=== PATIENT | female | born 1985 | race Caucasian/White ===

== ENCOUNTER 2017-02-18 00:17 | Day surgery (SDC) | payer BC ==
--- NOTE | 2017-02-18 01:13 | ED ---
Abdominal Pain/Female - HPI Summary HPI Summary: Pt here w/ pelvic pain since Feb 08 s/p ectopic diagnosis on Jan 26 and 2 rounds of methotrexate tx, first on Jan 27, 2nd Feb 03. Had a 2 day "period" on Feb 08 w/ pain. No bleeding since but had vaginal spotting today. She's had pain on/off since - sharp at times and now just pressure - worse tonight at 23:00 - 5/10 - does not want pain medication. Associated sx of shaking for about an hour after pain hits. Denies fever, chills , increased heart rate, SOB, chest pain. Her reports she had noticeable pain after bowel movements which triggers nausea for pt. She is moving her bowels well otherwise and denies rectal bleeding. Has some mild lower back pain which she attributes to lying in bed too much. Her first was successful and w/o complications - FT, vaginal delivery. She has had difficulty conceiving a 2nd child so has been using metformin, then estrogen, etc. Stopped taking medications once they realized she had an ectopic . Has not had intercourse since as well. NOTE: LEEP in college - cleared since w/o residual issues. NOTE: pt's blood type is O- and is AB- - no rhogam - History of Current Complaint Chief Complaint: EDAbdPain Stated Complaint: PAIN Time Seen by Provider: 02/18/17 00:42 Hx Obtained From: Patient, Family/Revenue Coordinator - Hx Last Menstrual Period: 03/29/15 Pain Intensity: 3 Allergies/Adverse Reactions: Allergies Allergy/AdvReac Type Severity Reaction Status Date / Time Amoxicillin Allergy Unknown Verified 10/14/12 11:42 Reaction Details Penicillins Allergy Unknown Verified 10/14/12 11:42 Reaction Details seasonal allergy Allergy Eyes Uncoded 10/14/12 11:42 Itchy/Swollen/Red/Watery Home Medications: Home Medications NK [No Home Medications Reported] 02/18/17 [History Confirmed 02/18/17] PMH/Surg Hx/FS Hx/Imm Hx Previously Healthy: Yes Endocrine/Hematology History: Denies: Hx Thyroid Disease, Hx Anemia, Hx Unexplained Bleeding, Autoimmune Disease Respiratory History: Reports: Hx Asthma GI History: Denies: Hx Crohn's Disease, Hx Diverticulosis, Hx Gall Bladder Disease, Hx Gastroesophageal Reflux Disease, Hx Gastrointestinal Bleed, Hx Hiatal Hernia, Hx Irritable Bowel, Hx Obstructive Bowel, Hx Ulcer History: Denies: Hx Kidney Infection, Hx Kidney Stones - Surgical History Surgery Procedure, Year, and Place: LEE Infectious Disease History: No Infectious Disease History: Denies: Traveled Outside the [place] in Last 30 Days - Family History Known Family History: Positive: None - Social History Occupation: Employed Full-time - teacher Lives: With Family Alcohol Use: None Hx Substance Use: No Substance Use Type: Reports: None Hx Tobacco Use: No Smoking Status (MU): Never Smoked Tobacco Review of Systems Constitutional: Negative, Other - "shaking" after wave of pain Negative: Fever, Chills Eyes: Negative Negative: Drainage, Erythema ENT: Negative Negative: Sore Throat, Ear Ache, Nasal Discharge Cardiovascular: Negative Negative: Chest Pain Respiratory: Negative Negative: Shortness Of Breath, Cough Positive: Abdominal Pain, Nausea. Negative: Vomiting, Diarrhea Positive: see HPI. Negative: burning, dysuria, discharge, frequency, flank pain , incontinence, pain, urgency Musculoskeletal: Other - low back sore Skin: Negative Neurological: Negative Psychological: Normal All Other Systems Reviewed And Are Negative: Yes Physical Exam Triage Information Reviewed: Yes Vital Signs On Initial Exam: Initial Vitals Temp Pulse Resp BP Pulse Ox 98 F 103 18 139/74 98 02/18/17 00:20 02/18/17 00:20 02/18/17 00:20 02/18/17 00:20 02/18/17 00:20 Vital Signs Reviewed: Yes Appearance: Positive: Well-Appearing - overall color is good, appears well perfused, pleasant, good historian - is present w/ her and verifies timeline, Well-Nourished, Pain Distress - pt appears to be comfortable lying on Rt side but uncomfortable whens he rolls onto her back for ab exam - legs shaking (from pain?), Thin Skin: Positive: Warm, Skin Color Reflects Adequate Perfusion, Dry Head/Face: Positive: Normal Head/Face Inspection Eyes: Positive: Normal, EOMI, Conjunctiva Clear - anicteric sclera ENT: Positive: Normal ENT inspection, Hearing grossly normal, Pharynx normal - mucosa moist Neck: Positive: Supple, Nontender Respiratory/Lung Sounds: Positive: Clear to Auscultation, Breath Sounds Present. Negative: Rales, Rhonchi, Wheezes Cardiovascular: Positive: Normal, RRR, Pulses are Symmetrical in both Upper and Lower Extremities, S1, S2. Negative: Murmur, Rub Abdomen Description: Positive: Soft, Distended - mild - tympany w/ percussion, Other: - general TTP over lower abdomen however has most pain in Lt lower quadrant, closer to midline - no rebounding Bowel Sounds: Positive: Present Pelvic Exam: Positive: external exam normal, speculum exam normal - dark red blood in vaginal canal - os w/ mucous and blood d/c, tender w/ cervical motion, tender adnexa - Lt, not Rt Musculoskeletal: Positive: Normal, Strength/ROM Intact Neurological: Positive: Normal, Sensory/Motor Intact, Alert, Oriented to Person Place, Time, CN Intact II-III Psychiatric: Positive: Normal Diagnostics - Vital Signs Vital Signs Temp Pulse Resp BP Pulse Ox 02/18/17 00:20 98 F 103 18 139/74 98 - Laboratory Result Diagrams: 02/18/17 08:44 02/18/17 01:53 Lab Statement: Any lab studies that have been ordered have been reviewed, and results considered in the medical decision making process. Abdominal Pain Fem Course/Dx - Course Course Of Treatment: Pt presents s/p ectopic with 2 rounds of methotrexate (see HPI for details). She has generalized pelvic pain w/ most pain in LLQ and vaginal spotting w/ increased pain tonight at 23:00. Pelvic exam + for Lt adnexal tenderness and + CMT. Discussed case with Dr. Brenner as [facility] U/S tech reports possible B/L ectopic with hemorrhage in pelvis. Blood products were anticipated at this time, however pt's H&H are stable as well as vitals. Her WBC's and other inflammatory markers are WNL and she does not appear to have a fever at initial intake. Her temp moved to 100F after a [address] Brenner feels liklihood of ectopic rupture at this point w/ HCG 's trending down is not possible but will review final TVUS report upon completion. Also notes B/L ectopic is extremely rare. She is pleased with hcg downward trend since 2nd round of methotrexate. Requesting call back when pt's U/S is read by radiologist and as more labs return. UPDATE: TVUS report called in by Dr. Sb Woodruff and sent via fax (see report for details) . Concern for abnormal finding in B/L fallopian tubes - it was suggested she could have possibly had B/L ecoptic pregnancies as she was on fertility treatment prior to . Diff dx was also corpus luteum w/ debris on Rt. He is reporting a moderate amount of pelvic/ab fluid consistent w/ hemorrhage in lower pelvis and reaching up to liver, kidneys and base of spleen. Discussed again with Dr. Brenner who agrees to come in to evaluate the pt. Pt vitals and sx were monitored throughout her course of care here in ED and w/o acute change in BP, heart rate or temp to signify acute changes in her condition. Dr. García was also part of pt's care all along and agreed with plan. Pt and were also kept in the loop of findings and plan of care throughout the evening. Pt is stable at time of transition of care to Dr. Brenner. critical care time: 2 hours - Diagnoses Provider Diagnoses: Hemorrhage, peritoneal, , ectopic Discharge - Discharge Plan Condition: Stable Disposition: ADMITTED TO [facility]
[2017-02-18] MEDS ORDERED: NS 0.9% 1000 ML* 1,000 ML IV ONE (01:25)
[2017-02-18 02:14] LABS: ABS Basophils 0 10^3/ul (0-0.2); ABS Eosinophils 0 10^3/ul (0-0.6); ABS Lymphocytes 1.5 10^3/ul (1.0-4.8); ABS Monocytes 0.6 10^3/ul (0-0.8); ABS Nucleated RBC 0 10^3/ul; Eosinophil % 0.4 % (0-6); Hematocrit 33 % (35-47); Hemoglobin 11.5 g/dl (12.0-16.0); Lymphocyte % 18.2 % (25-47); Mean Corpuscular HGB Conc 35 g/dl (31-36); Mean Corpuscular Hemoglobin 31 pg (27-31); Mean Corpuscular Volume 87 fL (80-97); Mean Platelet Volume 8 um3 (7.4-10.4); Nucleated Red Blood Cells % 0; Platelet Count 197 10^3/ul (150-450); Red Blood Count 3.79 10^6/ul (4.0-5.4); Red Cell Distribution Width 13 % (10.5-15); White Blood Count 8.1 10^3/ul (3.5-10.8)
[2017-02-18 02:23] LABS: EGFR Non-African American 115.1 (>60)
[2017-02-18 02:26] LABS: INR 0.99 (0.77-1.02)
[2017-02-18] MEDS ORDERED: Morphine INJ* 2 MG/ML 1 ML CARPUJECT IV ONE (03:01)
[2017-02-18] MEDS ORDERED: Ondansetron INJ* 2 MG/ML VIAL IV ONE (03:01)
[2017-02-18] MEDS ORDERED: Morphine INJ* 2 MG/ML 1 ML SYRINGE (TWO MG - NEW SYRINGE VERSION) ONE (03:06)
[2017-02-18 04:13] LABS: ABS Basophils 0.1 10^3/ul (0-0.2); ABS Eosinophils 0 10^3/ul (0-0.6); ABS Lymphocytes 1.3 10^3/ul (1.0-4.8); ABS Monocytes 0.4 10^3/ul (0-0.8); ABS Neutrophils 7.6 10^3/ul (1.5-7.7); ABS Nucleated RBC 0 10^3/ul; Eosinophil % 0.1 % (0-6); Hematocrit 31 % (35-47); Hemoglobin 10.6 g/dl (12.0-16.0); Lymphocyte % 13.4 % (25-47); Mean Corpuscular HGB Conc 34 g/dl (31-36); Mean Corpuscular Hemoglobin 30 pg (27-31); Mean Corpuscular Volume 88 fL (80-97); Mean Platelet Volume 8 um3 (7.4-10.4); Nucleated Red Blood Cells % 0; Platelet Count 188 10^3/ul (150-450); Red Blood Count 3.52 10^6/ul (4.0-5.4); Red Cell Distribution Width 13 % (10.5-15); White Blood Count 9.3 10^3/ul (3.5-10.8)
[2017-02-18] MEDS ORDERED: Lidocaine 2% PF * 5 ML VIAL ONE (05:31)
[2017-02-18] MEDS ORDERED: fentaNYL* 50 MCG/ML 2 ML VIAL (100 MCG VIAL) ONE (05:31)
[2017-02-18] MEDS ORDERED: Propofol* 10 MG/ML 20 ML BTL IV PUSH ONE (05:31)
[2017-02-18] MEDS ORDERED: Succinylcholine* 20 MG/ML 10 ML VIAL ONE (05:31)
[2017-02-18] MEDS ORDERED: Bupivacaine 0.25% SDV* 30 ML ONE (05:39)
[2017-02-18] MEDS ORDERED: Sodium Citrate/Citric Acid* 15 ML UDC PO ONE (05:48)
[2017-02-18] MEDS ORDERED: Naloxone* 0.4 MG/ML 1 ML VIAL IV PRN (05:52)
[2017-02-18] MEDS ORDERED: DiMENhydriNATE IV* 50 MG/ML VIAL IV PUSH PRN (05:52)
[2017-02-18] MEDS ORDERED: HYDROcodone/ACETAMIN 5-325 MG* 1 TAB PO PRN (05:52)
[2017-02-18] MEDS ORDERED: oxyCODONE/Acetamin 5/325 MG* TAB PO PRN (05:52)
[2017-02-18] MEDS ORDERED: PROCHLORPERAZINE INJ 5 MG/ML 2 ML VIAL IV PRN (05:52)
[2017-02-18] MEDS ORDERED: fentaNYL* 50 MCG/ML 2 ML VIAL (100 MCG VIAL) IV PRN (05:52)
[2017-02-18] MEDS ORDERED: Sodium Citrate/Citric Acid* 15 ML UDC ONE (05:54)
[2017-02-18] MEDS ORDERED: EPHEDrine (Pressors)* 50 MG/ML VIAL ONE (06:22)
--- NOTE | 2017-02-18 07:32 | RAD ---
INDICATION: Pelvic pain with known left ectopic . COMPARISON: Correlation is made with a prior pelvic ultrasound from November 22, 2016. TECHNIQUE: Multiple real-time transvaginal images of the pelvis were obtained. FINDINGS: The uterus is normal in size and shape. No intrauterine gestational sac is seen. In the left adnexal region there is a complex mass measuring 3.4 x 2.8 x 2.6 cm with increased vascularity likely representing the patient's known ectopic . In the right adnexal region there is a thick-walled complex cystic mass with increased vascularity and echogenic structure within the cyst measuring 1.8 x 1.5 x 1.6 cm possibly representing a complex cyst versus a second ectopic . There is a moderate amount of free intraperitoneal fluid and hemorrhage in the pelvis. There is free intraperitoneal fluid is noted in both the right and left upper quadrant suspicious for ruptured ectopic . IMPRESSION: 1. MODERATE AMOUNT OF FREE INTRAPERITONEAL FLUID IN THE PELVIS AND IN BOTH UPPER QUADRANT SUSPICIOUS FOR A RUPTURED ECTOPIC . 2. 3.4 CM COMPLEX MASS IN THE LEFT ADNEXAL REGIONS SUSPICIOUS FOR THE PATIENT'S KNOWN ECTOPIC . 3. COMPLEX THICK-WALLED CYSTIC STRUCTURE IN THE RIGHT ADNEXA POSSIBLY REPRESENTING A COMPLEX CYST VERSUS A SECOND ECTOPIC .
[2017-02-18 08:52] LABS: ABS Basophils 0 10^3/ul (0-0.2); ABS Eosinophils 0 10^3/ul (0-0.6); ABS Lymphocytes 1.6 10^3/ul (1.0-4.8); ABS Monocytes 0.6 10^3/ul (0-0.8); ABS Neutrophils 4.9 10^3/ul (1.5-7.7); ABS Nucleated RBC 0 10^3/ul; Eosinophil % 0 % (0-6); Hematocrit 29 % (35-47); Lymphocyte % 22.8 % (25-47); Mean Corpuscular HGB Conc 35 g/dl (31-36); Mean Corpuscular Hemoglobin 31 pg (27-31); Mean Corpuscular Volume 87 fL (80-97); Mean Platelet Volume 8 um3 (7.4-10.4); Nucleated Red Blood Cells % 0; Platelet Count 165 10^3/ul (150-450); Red Blood Count 3.26 10^6/ul (4.0-5.4); Red Cell Distribution Width 13 % (10.5-15); White Blood Count 7.2 10^3/ul (3.5-10.8)
[2017-02-18 10:02] VITALS: BP 162/73
--- NOTE | 2017-02-18 17:55 | OP ---
DATE OF OPERATION: 02/18/17 [facility] DATE OF : 81 SURGEON: Krystle Brenner MD ASSEMBLER 1ST SHIFT: Aretha Castro MD ANESTHESIOLOGIST: Em Gillette MD ANESTHESIA: General endotracheal with local. PRE-OP DIAGNOSES: Hemoperitoneum, left ectopic . POST-OP DIAGNOSES: Hemoperitoneum, ruptured left ectopic . OPERATIVE PROCEDURE: Laparoscopic left salpingectomy. IV FLUIDS: 1550 cc of crystalloid. ESTIMATED BLOOD LOSS: Minimal intraoperatively; however, preoperatively the patient had approximately 650 cc of intra-abdominal blood. URINE OUTPUT: 150 cc of clear yellow urine. FINDINGS: Revealed 650 cc approximately intra-abdominal blood, ruptured left fallopian tube consistent with ectopic rupture, normal-appearing left ovary, normal-appearing right ovary, normal-appearing right tube, normal- appearing uterus, anterior peritoneal reflection with evidence of endometriosis. Normal-appearing appendix, normal-appearing bowel, normal- appearing liver edge. COMPLICATIONS: None apparent. DISPOSITION: Stable to recovery room. DESCRIPTION OF PROCEDURE: The patient was placed in dorsal lithotomy position after undergoing general endo-tracheal anesthesia. Legs were placed in [place] Greg Stirrups. The perineum and abdomen were prepped and draped in sterile standard fashion. The patient was identified with the universal protocol for correct position, patient, and procedure, and sterile speculum was inserted in the vagina. Cervix was visualized and grasped with single-tooth tenaculum and a Hulka clamp was placed. Single-tooth tenaculum and sterile speculum removed. Rayo catheter was placed using sterile standard technique. At that point, attention was focused on the abdomen. 5 cc of 0.25% Marcaine was injected infraumbilically. Incision was made with an 11-scalpel blade. Fascia was grasped with Kochers and incised with scalpel. Tag sutures were placed using 0 Biosyn on either edge. A blunt 10-mm Timoteo trocar and trocar sheath were inserted. Balloon was insufflated. Confirmation of excellent placement of trocar and trocar sheath with camera. Pneumoperitoneum was created at that point. Two lateral incisions were made, one on the left first and then on the right. 4 cc was injected on the left port site and 3 cc on the right port site with 0.25% Marcaine. Incision was made with 11-blade. The 5- mm trocar and trocar sheath were placed under direct visualization, both on the right and the left. The suction irrigation was carried out for removal of intra -abdominal blood and clot. The left ectopic was identified with rupture of the left fallopian tube. The left fallopian tube was grasped with blunt forceps and using a LigaSure, the mesosalpinx was ligated to the base of the tube and the left ectopic was excised in the left fallopian tube. An Endobag was then inserted through the 10-mm port and under direct visualization with 5-mm camera , the left ectopic was placed within the bag. The EndoCatch was then removed along with the trocar sheath. The specimen was then handed off the field. The trocar was then replaced. 10-mm camera was then used. Copious irrigation was performed. Normal appendix was visualized as well as bowel. The liver edge was noted to have a normal appearance and the resection site along the mesosalpinx and base of the tube on the left side was noted to be hemostatic. There was a small anterior peritoneal reflection consistent with endometriosis that appeared to be burnt out. The right tube and ovary had normal appearance. The left ovary had normal appearance. There was no evidence of scarring along the uterosacral, the uterus had normal appearance. The 5-mm trocar and trocar sheath were then removed under direct visualization and the 10-mm trocar was then removed from the umbilicus. The periumbilical fascia was reapproximated using 0 Biosyn. The skin was then reapproximated using 4-0 Monocryl in a subcuticular fashion at all 3 port sites. Mastisol and Steri's were applied. The Hulka clamp was then removed as well as Rayo catheter. The patient was returned to dorsal supine position and went to recovery room in stable conditions. All sponge, instrument, and blade counts were correct throughout the case. The patient tolerated the procedure well. [id number]/[facility] #: [id number] [facility] HOSPITALMarcy
== END 2017-02-18 05:11 | disposition home or self-care (01) ==
LOC: ED 00:17 → OR 05:11
PROVIDERS: ATTEND Obstetrics & Gynecology
DX: O00.102 Left tubal pregnancy without intrauterine pregnancy (principal); K66.1 Hemoperitoneum; N83.8 Other noninflammatory disorders of ovary, fallopian tube and broad ligament; R10.2 Pelvic and perineal pain; Z3A.00 Weeks of gestation of pregnancy not specified
CPT/HCPCS: 36415; 76817; 80053; 82150; 83605; 83690; 84702; 85025; 85610; 85730; 86140; 86850; 86900; 86901; 86922; 87040; 88305; 99284; A9270-GY; J0330; J2270; J2405; J2704; J3010

== ENCOUNTER 2019-01-25 15:17 | Inpatient (IN) | payer BC ==
[2019-01-25] MEDS ORDERED: Buffered Lidocaine 1% SYRIN* 1 ML/SYRINGE INTRADERM ONE (15:49)
[2019-01-25] MEDS ORDERED: Lactated Ringers 1000 ML Bag* 1,000 ML IV ONE (15:49)
[2019-01-25] MEDS ORDERED: Lactated Ringers 1000 ML Bag* 1,000 ML IV SCH ×2 (16:00→19:00)
--- NOTE | 2019-01-25 16:01 | HP ---
General Information - Reason for Visit labor - General Information Maternal Age: 28 Grav: 1 Para: 0 SAB: 0 IEA: 0 Estimated Due Date: 07/24/14 Determined By: Early Ultrasound Maternal Blood Type and Rh: O Negative - Results this Serology/RPR Result: Non-Reactive Rubella Result: Immune HBsAg Result: Negative HIV Result: Negative Exam Allergies/Adverse Reactions: Allergies MS Amoxicillin Allergy (Verified 10/14/12 11:42) Unknown Reaction Details PCN allergy, pt avoids MS Penicillins Allergy (Verified 10/14/12 11:42) Unknown Reaction Details seasonal allergy Allergy (Uncoded 10/14/12 11:42) Eyes Itchy/Swollen/Red/Watery throat - Measurements Pre- Weight: 120 lb
--- NOTE | 2019-01-25 16:09 | HP ---
General Information - Reason for Visit ROM @2pm with contractions starting afterwards - General Information Maternal Age: 33 Grav: 3 Para: 1 SAB: 1 IEA: 0 Estimated Due Date: 02/01/19 Determined By: LMP Maternal Blood Type and Rh: O Negative - Results this Serology/RPR Result: Non-Reactive Rubella Result: Immune HBsAg Result: Negative HIV Result: Negative GBS Culture Result: Negative Past Medical History Delivery History: Hx Complicated Vaginal Delivery - 32wk PTD Pertinent Past Medical History: See Records Pertinent Past Surgical History: See Records Pertinent Family History: Non-Contributory - Antepartal Records Antepartal Records: Reviewed, Complicated by: - IVF, AMA Review of Systems Constitutional: Comfortable CV Complaint: No Respiratory: Shortness of Breath: No Gastrointestinal: No Nausea/Vomiting Genitourinary: Bleeding, Leaking Fluid Musculoskeletal: Contractions Neurological: No Headache Movement: Normal Exam Allergies/Adverse Reactions: Allergies MS Amoxicillin Allergy (Verified 10/14/12 11:42) Unknown Reaction Details PCN allergy, pt avoids MS Penicillins Allergy (Verified 10/14/12 11:42) Unknown Reaction Details seasonal allergy Allergy (Uncoded 10/14/12 11:42) Eyes Itchy/Swollen/Red/Watery throat - Measurements Height: 5 ft 5 in Weight: 160 lb Weight in lbs: [id number] Body Mass Index (BMI): 26.6 Pre- Weight: 125 lb Weight Gained This : 35 lbs and 0 ozs - Exam Breast: Breast Exam Deferred Extremities: No Edema Heart: Normal Rhythm/Heart Sounds HEENT: No Significant Findings Reflexes: DTR 2+ - Abdominal Exam Abdomen Exam: Non-Tender - Ultrasound/Biophysical Profile Ultrasound Status: Not Done Targeted Exam Findings Cervical Exam: 5cm Effacement: 90% Station: +1 Presenting Part: Vertex Membrane Status: SROM Amniotic Fluid Evaluation: Gross Rupture EFM Findings - External Monitor Findings Baseline Heart Rate: 135 External Monitor Findings: Accelerations Present, No Pattern of Variable or Late Decelerations, Variability Moderate, Baseline Stable Contractions: Regular - q2-3 Assessment/Plan - Assessment @39wks with SROM & active labor - Obstetrical Risk Factors Obstetrical Risk Factors: Assisted Reproduction - Plan Plan: Observe, Admit - Anticipate Vaginal Delivery - Date/Time of Admission Date of Admission: 01/25/19 Time of Admission: 17:00
[2019-01-25 16:35] LABS: ABS Basophils 0.1 10^3/ul (0-0.2); ABS Lymphocytes 2.1 10^3/ul (1.0-4.8); ABS Monocytes 0.6 10^3/ul (0-0.8); ABS Neutrophils 6.9 10^3/ul (1.5-7.7); Eosinophil % 0.3 %; Hematocrit 36 % (35-47); Hemoglobin 12.7 g/dL (12.0-16.0); Lymphocyte % 21.2 %; Mean Corpuscular HGB Conc 35 g/dL (31-36); Mean Corpuscular Hemoglobin 32 pg (27-31); Mean Corpuscular Volume 90 fL (80-97); Mean Platelet Volume 10.2 fL (7.4-10.4); Nucleated Red Blood Cells % 0.1; Platelet Count 157 10^3/uL (150-450); Red Blood Count 3.99 10^6 /uL (3.70-4.87); Red Cell Distribution Width 13 % (10-15); White Blood Count 9.7 10^3/uL (3.5-10.8)
[2019-01-25 16:51] LABS: Urine Appearance Cloudy; Urine Bilirubin Negative (Negative); Urine Blood 3+ (Negative); Urine Color Yellow; Urine Glucose Negative (Negative); Urine Ketones Negative (Negative); Urine Nitrite Negative (Negative); Urine Protein Negative (Negative); Urine Specific Gravity 1.004 (1.010-1.030); Urine Urobilinogen Negative (Negative)
[2019-01-25 16:55] LABS: Urine Bacteria 1+ (Absent); Urine Red Blood Cell Trace(0-2/hpf) (Absent); Urine Squamous Epithelial Cell Present (Absent); Urine White Blood Cell Trace(0-5/hpf) (Absent)
[2019-01-25 17:24] LABS: Albumin 3.1 g/dL (3.2-5.2); Albumin/Globulin Ratio 1.1 (1-3); BUN/Creatinine Ratio 23.7 (8-20); Calcium 8.6 mg/dL (8.6-10.3); EGFR African American 104.8 (>60); EGFR Non-African American 86.6 (>60); Globulin 2.7 g/dL (2-4); Potassium 3.9 mmol/L (3.5-5.0); Total Bilirubin 0.3 mg/dL (0.2-1.0); Total Protein 5.8 g/dL (6.4-8.9); Uric Acid 5.9 mg/dL (2.3-6.6)
[2019-01-25 17:31] LABS: Urine Benzodiazepine Screen None Detected (None Detect); Urine Opiates Screen None Detected (None Detect)
[2019-01-25] MEDS ORDERED: Glycerin ADULT SUPP PR PRN (18:10)
[2019-01-25] MEDS ORDERED: Acetaminophen TAB* 325 MG PO PRN (18:10)
--- NOTE | 2019-01-25 18:15 | PROCNOTE ---
[facility] OB: Delivery Note - Delivery A Date of : 01/25/19 Time of : 17:46 [place] Sex: Male Weight at : 7 lb 7 oz Score 1 Minute: 9 Score 5 Minutes: 9 Gestational Age in Weeks and Days at Delivery: 39 Weeks and 0 Days Delivery Method: Spontaneous Vaginal Labor: Spontaneous Did Patient attempt ?: N/A, No Previous Amniotic Fluid: Clear Estimated Blood Loss: 200 Anesthesia/Analgesia: None Delivered By: Queenie Sterling - Nursery Level of Nursery: Regular/Bedside - Perineum Perineal Injury: None/Intact, Periurethral Laceration Perineal Repair: None - Events Delivery Events of Note: None Apply - Additional Delivery Notes Additional Delivery Notes: Pt underwent SROM at 1400 and then progressed into active labor. She reached fully dilated 3hrs later and pushed x45min to deliver the infant's head in ERROL position. 1 nuchal cord reduced and the rest of the body delivered. The was placed on mom's abdomen. After >1min the cord was clamped x2 and cut. The placenta delivered with gentle cord traction and fundal massage and appeared intact. There were several small periurethral and a subclitoral abrasion that were hemostatic. Good hemostasis and fundus firm.
[2019-01-25] MEDS: Ibuprofen TAB* 600 MG PO PRN (18:26)
[2019-01-25] MEDS ORDERED: Simethicone TAB* 80 MG TAB.CHEW PO SCH (21:00)
[2019-01-25] MEDS: Dibucaine 1% 28.35 GM TUBE PR PRN (21:04)
[2019-01-25] MEDS: Witch Hazel PAD* JAR TOPICAL PRN (21:04)
[2019-01-25] MEDS: Docusate CAP* 100 MG PO SCH (21:05)
[2019-01-26] MEDS: Dibucaine 1% 28.35 GM TUBE PR PRN (03:21)
[2019-01-26] MEDS: Witch Hazel PAD* JAR TOPICAL PRN ×2 (03:21→21:18)
[2019-01-26] MEDS: Ibuprofen TAB* 600 MG PO PRN ×3 (03:21→21:20)
[2019-01-26 07:37] LABS: ABS Lymphocytes 2.1 10^3/ul (1.0-4.8); ABS Neutrophils 10.8 10^3/ul (1.5-7.7); Eosinophil % 0.1 %; Hematocrit 32 % (35-47); Lymphocyte % 14.9 %; Mean Corpuscular HGB Conc 34 g/dL (31-36); Mean Corpuscular Hemoglobin 30 pg (27-31); Mean Corpuscular Volume 90 fL (80-97); Mean Platelet Volume 9.8 fL (7.4-10.4); Platelet Count 134 10^3/uL (150-450); Red Blood Count 3.62 10^6 /uL (3.70-4.87); Red Cell Distribution Width 13 % (10-15)
[2019-01-26] MEDS: Docusate CAP* 100 MG PO SCH ×4 (08:21→21:18)
[2019-01-26] MEDS ORDERED: Ferrous Gluconate TAB* 324 MG TAB PO SCH (09:00)
[2019-01-26] MEDS: Labetalol TAB* 100 MG PO SCH ×2 (14:29→21:17)
[2019-01-26 15:02] LABS: Urine Appearance Clear; Urine Bacteria Absent (Absent); Urine Bilirubin Negative (Negative); Urine Blood 3+ (Negative); Urine Glucose Negative (Negative); Urine Ketones Negative (Negative); Urine Nitrite Negative (Negative); Urine Protein 1+(30 mg/dL) (Negative); Urine Red Blood Cell 3+(>10/hpf) (Absent); Urine Specific Gravity 1.003 (1.010-1.030); Urine Squamous Epithelial Cell Present (Absent); Urine Urobilinogen Negative (Negative); Urine White Blood Cell 2+(11-20/hpf) (Absent)
[2019-01-26 15:03] LABS: Urine Color Amber
[2019-01-26 15:24] LABS: Calcium 8.7 mg/dL (8.6-10.3); Potassium 4.4 mmol/L (3.5-5.0); Total Bilirubin 0.2 mg/dL (0.2-1.0)
[2019-01-26 15:30] LABS: Albumin/Globulin Ratio 1.3 (1-3); BUN/Creatinine Ratio 17.4 (8-20); EGFR African American 117.2 (>60); EGFR Non-African American 96.8 (>60); Globulin 2.4 g/dL (2-4); Total Protein 5.4 g/dL (6.4-8.9)
[2019-01-27 07:53] VITALS: BP 142/71
[2019-01-27] MEDS: Labetalol TAB* 100 MG PO SCH (09:36)
[2019-01-27] MEDS: Docusate CAP* 100 MG PO SCH (09:36)
== END 2019-01-27 11:20 | disposition home or self-care (01) | DRG 560 ==
LOC: MCHOBOUT 15:17 → MCHOB 15:39
PROVIDERS: ADMIT Obstetrics & Gynecology; ATTEND Obstetrics & Gynecology
PROC: 10E0XZZ Delivery of Products of Conception, External Approach (ICD-10-PCS; principal; 2019-01-25)
DX: O69.81X0 Labor and delivery complicated by cord around neck, without compression, not applicable or unspecified (principal); Z37.0 Single live birth; O71.82 Other specified trauma to perineum and vulva; O77.0 Labor and delivery complicated by meconium in amniotic fluid; O90.81 Anemia of the puerperium; D64.9 Anemia, unspecified; Z3A.39 39 weeks gestation of pregnancy
CPT/HCPCS: 36415; 80053; 80307; 81003; 81015; 84550; 85025; 86850; 86900; 86901; 87086; A9270-GY